=== PATIENT | male | born 1990 | race Caucasian/White ===

== ENCOUNTER → 2017-05-21 | Outpatient (CLI) | payer OTHER ==
--- NOTE | 2017-05-21 08:45 | US ---
EXAMINATION TYPE: US liver DATE OF EXAM: 05/21/2017 COMPARISON: NONE CLINICAL HISTORY: R94.5 increased liver function. abn labs, NPO EXAM MEASUREMENTS: Liver Length: 16.8 cm Gallbladder Wall: 0.2 cm CHD: 0.4 cm Right Kidney: 10.1 x 4.7 x 4.1 cm Pancreas: Tail obscured by overlying bowel gas Liver: wnl Gallbladder: wnl Evidence for sonographic Lowe's sign: neg CHD: wnl Right Kidney: wnl IMPRESSION: 1. Sonographic echogenicity of the hepatic parenchyma is within normal limits despite the increased l iver function tests. 2. No sonographic evidence of acute cholecystitis or cholelithiasis.
== END | disposition home or self-care (01) ==
LOC: RADUSWWP 08:10
PROVIDERS: ATTEND Family Medicine
DX: R94.5 Abnormal results of liver function studies (principal)
CPT/HCPCS: 76705

== ENCOUNTER 2018-04-24 15:00 | Emergency (ER) | payer OTHER ==
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
[2018-04-24 16:00] LABS: Glucose,Whole Blood 87 mg/dL (75-99)
[2018-04-24 16:14] LABS: Basophils % (A) 1 %; Eosinophils # (A) 0.1 k/uL (0-0.7); Eosinophils % (A) 1 %; HCT 43.9 % (39.0-53.0); HGB 15.2 gm/dL (13.0-17.5); Lymphocytes % (A) 25 %; MCH 29.8 pg (25.0-35.0); MCHC 34.5 g/dL (31.0-37.0); MCV 86.4 fL (80.0-100.0); Mean Platelet Volume 6.2; Monocytes # (A) 0.4 k/uL (0-1.0); Monocytes % (A) 5 %; Neutrophils # (A) 5.2 k/uL (1.3-7.7); Neutrophils % (A) 67 %; Platelet Count 361 k/uL (150-450); RBC 5.08 m/uL (4.30-5.90); RDW 12.4 % (11.5-15.5); WBC 7.7 k/uL (3.8-10.6)
[2018-04-24 16:17] LABS: INR 0.9 (<1.2); Prothrombin Time 10.1 sec (9.0-12.0)
[2018-04-24 16:21] LABS: ALT 30 U/L (21-72); AST 24 U/L (17-59); Albumin 4.8 g/dL (3.5-5.0); Alcohol <10 mg/dL; Alkaline Phosphatase 54 U/L (38-126); Amylase 90 U/L (30-110); Anion Gap 9 mmol/L; Blood Urea Nitrogen 20 mg/dL (9-20); Calcium 9.9 mg/dL (8.4-10.2); Carbon Dioxide 29 mmol/L (22-30); Chloride 102 mmol/L (98-107); Glucose 90 mg/dL (74-99); Lipase 168 U/L (23-300); Potassium 4.7 mmol/L (3.5-5.1); Sodium 140 mmol/L (137-145); Total Bilirubin 0.3 mg/dL (0.2-1.3); Total Protein 8.3 g/dL (6.3-8.2)
[2018-04-24 16:24] LABS: Creatine Kinase 67 U/L (55-170)
[2018-04-24 16:37] LABS: Creatine Kinase MB 0.6 ng/mL (0.0-2.4); Troponin I <0.012 ng/mL (0.000-0.034)
--- NOTE | 2018-04-24 17:02 | XR ---
PROCEDURE: XR cervical spine comp - 6V DATE AND TIME: 04/24/2018 4:44 PM CLINICAL INDICATION: PHH; Pain TECHNIQUE: Department protocol COMPARISON: None FINDINGS: There is straightening of the cervical spine. There is no fracture or malalignment. The sof t tissues are unremarkable. IMPRESSION: Negative for fracture or malalignment.
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
[2018-04-24 17:49] VITALS: BP 136/86; PULSE 88; RESP 18; TEMP 97.9
--- NOTE | 2018-04-25 09:01 | CDI ---
Documentation Clarification OP Dear Dr. Vikas Adames Please provide myofascial strain specific location. Thank you, Cuca Muhammad Infant Lead Teacher If you have any questions, please contact [employer] at [phone] [facility]
== END 2018-04-24 17:32 | disposition home or self-care (01) ==
LOC: EC 15:00
DX: S46.812A Strain of other muscles, fascia and tendons at shoulder and upper arm level, left arm, initial encounter (principal); S46.811A Strain of other muscles, fascia and tendons at shoulder and upper arm level, right arm, initial encounter; S16.1XXA Strain of muscle, fascia and tendon at neck level, initial encounter; S50.811A Abrasion of right forearm, initial encounter; S50.812A Abrasion of left forearm, initial encounter; I10 Essential (primary) hypertension; F90.9 Attention-deficit hyperactivity disorder, unspecified type; Z79.899 Other long term (current) drug therapy; Z88.1 Allergy status to other antibiotic agents; V44.5XXA Car driver injured in collision with heavy transport vehicle or bus in traffic accident, initial encounter; Y92.89 Other specified places as the place of occurrence of the external cause
CPT/HCPCS: 36415; 71045; 72050; 72170; 80053; 80320; 82150; 82550; 82553; 83605; 83690; 84484; 85025; 85610; 85730; 86850; 86900; 86901; 99284

== ENCOUNTER → 2021-04-21 | Outpatient (CLI) | payer OTHER ==
[2021-04-22 03:31] LABS: % Iron Saturation 20.06 (15.00-50.00); African American GFR (CKD) 99.1 (60.0-200.0); Albumin/Globulin Ratio 1.59 (1.60-3.17); Anion Gap 15.2 mmol/L (10.00-18.00); BUN/Creat Ratio 11.5 Ratio (12.00-20.00); Calcium 10.2 mg/dL (8.7-10.3); Carbon Dioxide 24.3 mmol/L (20.0-27.5); Globulin 3.2 g/dL (1.6-3.3); Non-African American GFR(CKD) 85.5 (60.0-200.0); Phosphorus 4.1 mg/dL (2.4-5.1); Potassium 4.7 mmol/L (3.5-5.5); Total Bilirubin 0.5 mg/dL (0.30-1.20); Total Protein 8.2 g/dL (6.2-8.2)
[2021-04-24 09:49] LABS: Angiotensin-1 Converting Enz. 32 U/L (8-52)
== END | disposition home or self-care (01) ==
LOC: LABWHC1 12:24
PROVIDERS: ATTEND Nurse Practitioner Adult Health
DX: N08 Glomerular disorders in diseases classified elsewhere (principal)
CPT/HCPCS: 36415; 80053; 82164; 82533; 82728; 83540; 83550; 83970; 84100; 84588; 85613; 85730

== ENCOUNTER → 2021-05-03 | Outpatient (CLI) | payer OTHER ==
--- NOTE | 2021-05-04 10:41 | ECHOF ---
Referral Reason:I10 Essential (primary) hypertension MEASUREMENTS -------- HEIGHT: 182.9 cm WEIGHT: 124.7 kg BP: RVIDd: 4.0 cm (< 3.3) IVSd: 1.1 cm (0.6 - 1.1) LVIDd: 4.7 cm (3.9 - 5.3) LVPWd: 1.1 cm (0.6 - 1.1) IVSs: 1.5 cm LVIDs: 2.7 cm LVPWs: 1.4 cm LA Diam: 4.0 cm (2.7 - 3.8) LAESV Index (A-L): 18.53 ml/m Ao Diam: 3.1 cm (2.0 - 3.7) AV Cusp: 2.1 cm (1.5 - 2.6) LA Diam: 4.2 cm (2.7 - 3.8) MV EXCURSION: 26.377 mm (> 18.000) MV EF SLOPE: 149 mm/s (70 - 150) EPSS: 0.2 cm MV E Tito: 0.89 m/s MV DecT: 245 ms MV A Tito: 0.56 m/s MV E/A Ratio: 1.58 RAP: 5.00 mmHg RVSP: 29.15 mmHg FINDINGS -------- Sinus rhythm. This was a technically good study. LV size, wall thickness and systolic function are normal, with an EF greater than 55%. The left raeann tricular size is normal. The right ventricle is moderately enlarged. Normal LA size by volume 22+/-6 ml/m2. The right atrial size is normal. The aortic valve is trileaflet, and appears structurally normal. No aortic stenosis or regurgitation. There is trace mitral regurgitation. Mild tricuspid regurgitation present. Right ventricular systolic pressure is normal at < 35 mmHg. There is no pulmonic regurgitation present. There is no pericardial effusion. CONCLUSIONS -------- 1. LV size, wall thickness and systolic function are normal, with an EF greater than 55%. 2. The left ventricular size is normal. 3. The right ventricle is moderately enlarged. 4. Normal LA size by volume 22+/-6 ml/m2. 5. The right atrial size is normal. 6. The aortic valve is trileaflet, and appears structurally normal. No aortic stenosis or regurgitati on. 7. There is trace mitral regurgitation. 8. Mild tricuspid regurgitation present. 9. There is no pericardial effusion. CONE TENDER: Ariadna Quiñonez RDCS
== END | disposition home or self-care (01) ==
LOC: RADECHMAIN 15:51
PROVIDERS: ATTEND Family Medicine
DX: I08.1 Rheumatic disorders of both mitral and tricuspid valves (principal); I10 Essential (primary) hypertension
CPT/HCPCS: 93306

== ENCOUNTER → 2022-08-31 | Outpatient (CLI) | payer OTHER ==
--- NOTE | 2022-08-31 13:38 | US ---
EXAMINATION TYPE: US scrotum with doppler. Grayscale and color Doppler Duplex imaging performed of t roldan scrotum. DATE OF EXAM: 08/31/2022 COMPARISON: NONE CLINICAL HISTORY: N50.89 OTHER SPECIFIED DISORDERS OF THE MALE GENITAL ORGANS. pt feels some worm lik e structures inferior to the left testicle with some tenderness EXAM MEASUREMENTS: TESTICLES: Right Testicle: 4.4 x 1.1 x 2.8 cm Left Testicle: 4.4 x 1.8 x 2.9 cm EPIDIDYMIS HEAD: Right Epididymis: 1.0 x 0.6 cm Left Epididymis: 1.1 x 0.7 cm Doppler performed to assess for testicular vascularity; good bilateral color flow and waveforms are s een. There is no evidence of testicular torsion. Few scattered echogenic foci with both testicles, more on the left than right. Presence of hydroceles: no Presence of varicoceles: yes, more prominent on the left at the pt's area of concern. IMPRESSION: 1. Left varicocele. 2. No intratesticular mass. 3. Appropriate arterial and venous spectral waveforms bilaterally. 4. Limited testicular microlithiasis.
== END | disposition home or self-care (01) ==
LOC: RADUSWWP 12:44
PROVIDERS: ATTEND Family Medicine
DX: N50.89 Other specified disorders of the male genital organs (principal); I86.1 Scrotal varices
CPT/HCPCS: 76870; 93975